=== PATIENT | female | born 1970 | race Caucasian/White ===

== ENCOUNTER 2016-12-22 12:24 | Emergency (ER) | payer MEDICARE ==
[~2016-12-22 12:24] MED LIST: ELIQUIS 5 MG TAB5 MG PO; FLECAINIDE ACET50 MG PO; PRAVACHOL80 MG PO; PROTONIX 40 MG40 M1 PO; TYLENOL 325MG325 MG PO
[2016-12-22 15:10] LABS: HEMOGLOBIN 11.4 gm/dl (12.3-15.3); RED BLOOD COUNT 3.72 M/UL (4.00-5.10)
== END 2016-12-22 19:02 | disposition home or self-care (01) ==
LOC: ER1 12:24
PROVIDERS: Emergency Medicine
DX: N13.2 Hydronephrosis with renal and ureteral calculous obstruction (principal); I48.91 Unspecified atrial fibrillation; Z88.8 Allergy status to other drugs, medicaments and biological substances
CPT/HCPCS: 36415; 71020; 80053; 81001; 83605; 83690; 83880; 84484; 84703; 85025; 85610; 85730; 87040; 93005; 96361; 96374; 96375; 99285; J0696; J2270; J2405

== ENCOUNTER 2020-09-02 04:55 | Emergency (ER) | payer MEDICARE, OTHER ==
[~2020-09-02 04:55] MED LIST changes: +ASPIRIN CHEWABL81 MG PO; +CARDIZEM 30MG T30 MG PO
[2020-09-02 05:42] LABS: HEMOGLOBIN 13.2 gm/dl (12.3-15.3); RED BLOOD COUNT 4.22 M/UL (4.00-5.10); WHITE BLOOD COUNT 7.3 K/UL (4.5-11.0)
[2020-09-02 05:59] LABS: BUN/CREATININE RATIO 36 (0-10)
== END 2020-09-02 06:45 | disposition home or self-care (01) ==
LOC: ER1 04:55
PROVIDERS: Family Medicine
DX: I47.1 Supraventricular tachycardia (principal); Z88.8 Allergy status to other drugs, medicaments and biological substances
CPT/HCPCS: 71045; 80053; 82550; 82553; 83874; 84484; 85025; 93005; 99285

== ENCOUNTER → 2020-09-04 | Outpatient (CLI) | payer MEDICARE, OTHER ==
[2020-09-04 12:42] LABS: HEMOGLOBIN 13.1 gm/dl (12.3-15.3); RED BLOOD COUNT 4.26 M/UL (4.00-5.10)
[2020-09-04 12:58] LABS: WHITE BLOOD COUNT 5.2 K/UL (4.5-11.0)
== END ==
LOC: LAB 11:54
PROVIDERS: Internal Medicine Cardiovascular Disease
DX: I10 Essential (primary) hypertension (principal); I48.0 Paroxysmal atrial fibrillation
CPT/HCPCS: 36415; 80061; 83735; 84443; 85025

== ENCOUNTER → 2020-09-24 | Outpatient (CLI) | payer MEDICARE, OTHER | LOC: ECHO 12:00 → NM 13:00 | DX: I20.8 Other forms of angina pectoris (principal); R06.02 Shortness of breath; I48.91 Unspecified atrial fibrillation; I25.9 Chronic ischemic heart disease, unspecified; I51.7 Cardiomegaly | CPT/HCPCS: ECHO; 78452; 93306; A9502; J2785 ==

== ENCOUNTER → 2020-09-25 | Outpatient (CLI) | payer MEDICARE, OTHER | LOC: NM 09:08 | DX: I20.8 Other forms of angina pectoris (principal); R06.02 Shortness of breath ==

== ENCOUNTER → 2021-01-01 | Outpatient (CLI) | payer MEDICARE, OTHER ==
[2021-01-01 12:34] LABS: BUN/CREATININE RATIO 23 (0-10)
[2021-01-03 11:15] LABS: CHOLESTEROL, TOTAL 172 mg/dL (100-199); HDL SIZE 9.3 nm (>=9.2); HDL-C 50 mg/dL (>39); HDL-P (TOTAL) 28.7 umol/L (>=30.5); LARGE HDL-P 6.1 umol/L (>=4.8); LARGE VLDL-P 3.9 nmol/L (<=2.7); LDL SIZE 21.4 nm (>20.5); LDL SIZE 21.4 nm (>=20.8); LDL-C 104 mg/dL (0-99); LDL-P 1052 nmol/L (<1000); LP-IR SCORE 45 (<=45); SMALL LDL-P 332 nmol/L (<=527); TRIGLYCERIDES 98 mg/dL (0-149); VLDL SIZE 48.6 nm (<=46.6)
== END ==
LOC: LAB 11:27
PROVIDERS: Emergency Medicine
DX: I48.0 Paroxysmal atrial fibrillation (principal); R53.83 Other fatigue; E78.2 Mixed hyperlipidemia; N18.2 Chronic kidney disease, stage 2 (mild)
CPT/HCPCS: 36415; 80053; 80061; 83704

== ENCOUNTER → 2021-01-31 | Outpatient (CLI) | payer MEDICARE | LOC: HEART 5 15:05 | DX: I48.91 Unspecified atrial fibrillation (principal) ==

== ENCOUNTER → 2021-10-07 | Outpatient (CLI) | payer MEDICARE ==
[2021-10-07 13:20] LABS: HEMOGLOBIN 13.1 gm/dl (12.3-15.3); RED BLOOD COUNT 4.2 M/UL (4.00-5.10); WHITE BLOOD COUNT 6.4 K/UL (4.5-11.0)
== END ==
LOC: LAB 12:12
PROVIDERS: Internal Medicine Cardiovascular Disease
DX: I10 Essential (primary) hypertension (principal)
CPT/HCPCS: 36415; 80053; 80061; 83735; 84443; 85025

== ENCOUNTER → 2021-11-12 | Outpatient (CLI) | payer MEDICARE | LOC: LAB 09:58 | PROVIDERS: Emergency Medicine | DX: E78.2 Mixed hyperlipidemia (principal); I48.0 Paroxysmal atrial fibrillation; I10 Essential (primary) hypertension | CPT/HCPCS: 36415; 80053 ==

== ENCOUNTER 2022-02-07 04:36 | Emergency (ER) | payer MEDICARE ==
[~2022-02-07] VITALS: Ht 172.7 cm; Wt 140.6 kg
[2022-02-07 05:53] LABS: HEMOGLOBIN 12.9 gm/dl (12.3-15.3); RED BLOOD COUNT 4.11 M/UL (4.00-5.10); WHITE BLOOD COUNT 7.2 K/UL (4.5-11.0)
[2022-02-07] MEDS ORDERED: ATORVASTATIN CA40 MG PO (10:14)
[2022-02-07] MEDS ORDERED: ISOSORBIDE MONO30 MG PO (10:14)
[2022-02-07] MEDS ORDERED: PROTONIX 40 MG40 M1 PO (10:14)
[2022-02-07] MEDS ORDERED: MULTAQ 400 MG400 MG PO (10:15)
[2022-02-07] MEDS ORDERED: ELIQUIS5 MG PO (10:15)
[2022-02-07] MEDS ORDERED: CARVEDILOL3.125 MG PO (10:35)
== END 2022-02-07 15:00 | disposition home or self-care (01) ==
LOC: ER1 04:36 → CDU 08:12
PROVIDERS: Emergency Medicine
DX: I48.0 Paroxysmal atrial fibrillation (principal); I10 Essential (primary) hypertension; G47.33 Obstructive sleep apnea (adult) (pediatric); E78.5 Hyperlipidemia, unspecified; Z79.01 Long term (current) use of anticoagulants; Z79.82 Long term (current) use of aspirin; Z79.899 Other long term (current) drug therapy; Z88.8 Allergy status to other drugs, medicaments and biological substances
CPT/HCPCS: 71045; 80053; 82550; 82553; 83735; 84484; 85025; 93005; 94660; 94664; 99285